=== PATIENT | female | born 1975 | race Caucasian/White ===

== ENCOUNTER 2023-12-26 10:50 | Emergency (ER) | payer SELFPAY ==
[2023-12-26 10:57] VITALS: BP 127/83
[2023-12-26] MEDS: LET TOPICAL ANESTHETIC GEL 3 ML TOPICAL (11:12)
--- NOTE | 2023-12-26 11:20 | ED.GENMED ---
History of Present Illness
General
Chief Complaint: Fall
Time Seen by Provider: 12/26/23 11:01
History of Present Illness
History of Present Illness:
48-year-old female presents the emergency department for ration of facial injury sustained after a fall last night. She admits to being intoxicated and fell, there is no reported loss of consciousness. She went to urgent care) emergency department
for further evaluation. Denies any vision changes or headache at this time. No reported nausea, vomiting, or neck pain
Review of Systems
Review of Systems
Allergies reviewed?: Yes
All Other Systems: ROS reviewed and negative except as documented in HPI and ROS
Phy Exam
Physical Exam
Physical Exam:
GEN: Well appearing, NAD, WDWN
HEENT: Oral mucosa moist, no scleral icterus. Moderate swelling and ecchymosis to the left maxillary and supraorbital face, there is a 1.5 cm laceration to the left maxilla with macerated edges and copious contamination. Extraocular motions are
intact in all villareal and no diplopia is noted
Cardiac: Regular rate
Lung: No respiratory distress, no tachypnea
MSK: No gross deformity or injuries
Skin: Good color, no pallor or jaundice, no rashes
Neuro: AO x3, moves all extremities freely
Psych: Calm, cooperative
Course
Orders/Labs/Results
Orders:
Orders
12/26/23 11:09
Lidocaine/Epinephrine/Tetracai [Let Topical Anesthetic Gel] 3 ml TOPICAL NOW STA
CR Facial Bones Comp Min 3 Vw* Urgent
Comment:
Reason For Exam: L maxillary injury
12/26/23 11:12
Lidocaine/Epinephrine/Tetracai [Let Topical Anesthetic Gel] 3 ml .ROUTE .STK-MED ONE
Vital Signs
Initial and Last Documented VS:
Initial Vital Signs
Temp Pulse Resp BP Pulse Ox
98.0 F 77 18 127/83 99
12/26/23 10:57 12/26/23 10:57 12/26/23 10:57 12/26/23 10:57 12/26/23 10:57
Last Documented Vital Signs
Temp Pulse Resp BP Pulse Ox
98.0 F 78 18 111/70 98
12/26/23 10:57 12/26/23 12:00 12/26/23 12:00 12/26/23 12:00 12/26/23 12:00
MDM/Problems Addressed
MDM/Problems Addressed:
Initial consents and imaging of face to evaluate for maxillary or orbital floor fracture however the patient refused this given that she is uninsured. She has no signs of extraocular entrapment thus this is not unreasonable however I did consider
some degree of imaging for clear and she agreed to the facial bone x-rays which showed no evidence for acute findings. Unfortunately wound is unable to be closed due to the duration of time since the injury. Irrigated copiously and cleaned with
contamination, recommend topical antibiotics preventively
*Critical Care Note
Total Time (30-74mins, 75-104mins- exclusive of procedures): Not Applicable
ED Attending Note
-
Portions of this chart may have been created with voice recognition software.� Occasional wrong word or��sound alike� substitutions may have occurred due to the inherent limitations of voice recognition software.
Discharge Plan
Departure
Patient Disposition: Home (Routine Discharge)
Date of Disposition: 12/26/23
Time of Disposition: 11:58
Patient with high blood pressure during this ER visit?: No
Discharge Problem:
Contusion of face, Facial laceration
Instructions: Wound Care (DC)
Prescriptions:
No Action
Methadone
70 PO DAILY
prenat.vits,tyra,[id number] [ Vitamin] 1 TAB tablet
1 tab PO
Referrals:
UNKNOWN - PT DOES,NOT KNOW [Family Provider] -
Activity Restrictions/Additional Instructions:
Apply neosporin/triple antibiotic ointment at least twice daily for 1 week
Ice the face to reduce swelling
Consider plastic surgery evaluation in 6-12 months to discuss scar revision
Interventions
Interventions:
*Risk Screen - Suicide Last Done: 12/26/23 10:57
*General Assessment Last Done: 12/26/23 10:57
*Neglect/Abuse Screening Last Done: 12/26/23 10:57
ED- Fall Risk Assessment Last Done: 12/26/23 12:00
*ED COVID-19 Vaccine History Last Done: 12/26/23 10:57
*Nursing Disposition Last Done: 12/26/23 12:03
ED-Musculoskeletal Assessment Last Done: 12/26/23 12:00
ED- Neurological Assessment Last Done: 12/26/23 12:00
ED-Skin Assessment Last Done: 12/26/23 12:00
Discharge Date and Time
Discharge Date/Time: 12/26/23 12:04
Print Language: YI
[2023-12-26 12:00] VITALS: BP 111/70
== END 2023-12-26 12:04 | disposition home or self-care (01) ==
LOC: EMR 10:50
PROVIDERS: EMERGENCY PHYSICIAN Emergency Medicine
DX: S01.81XA Laceration without foreign body of other part of head, initial encounter (principal); W19.XXXA Unspecified fall, initial encounter
CPT/HCPCS: 99283; 70150